=== PATIENT | female | born 1950 | race Caucasian/White ===

== ENCOUNTER → 2019-12-08 09:51 | Outpatient (CLI) | payer MEDICARE, OTHER ==
[2016-06-20 21:37] VITALS: BMI 41.6
[~2019-12-08 09:51] MED LIST: BIOTIN5 MG PO; CARDIZEM CD120 MG PO; CELEXA40 MG PO; COZAAR100 MG PO; FLORASTOR250 MG PO; HYDROCHLOROTH12.5 M1 PO; OMEGA 3 FISH OI1 CAP PO; PRESERVISION AR1 CAP PO; TOPROL XL100 MG PO; VITAMIN D31000 UNIT PO
== END | disposition home or self-care (01) ==
LOC: D.HCCECHO 09:51
PROVIDERS: ATTEND Internal Medicine Cardiovascular Disease
DX: I10 Essential (primary) hypertension (principal)